=== PATIENT | male | born 1950 | race Caucasian/White ===

== ENCOUNTER 2018-09-17 11:50 | Inpatient (IN) ==
[2018-09-17] MEDS ORDERED: LIDOCAINE 2% TOP JELLY 20 ML VIAL INTRAURETH ONE (15:03)
[2018-09-17] MEDS ORDERED: ALBUTEROL 2.5 MG/3 ML NEB RESP TX PRN (15:16)
[2018-09-17] MEDS ORDERED: ACETAMINOPHEN 325 MG TABLET PO PRN (15:16)
[2018-09-17] MEDS ORDERED: MORPHINE 4 MG/1 ML VIAL IV PRN (15:16)
[2018-09-17 16:03] LABS: Apearance,Urine CLOUDY (Clear); Bilirubin,Urine Negative (Negative); Blood, Urine Large mg/dL (Negative); Glucose,Urine (UA) Negative (Negative); Hyaline Casts,Urine 16 /LPF (0-3); Ketones,Urine Negative (Negative); Nitrite,Urine Negative (Negative); Protein,Urine 30 MG/DL; RBC,Urine 206 /HPF (0-4); Urine Urobilinogen < 2.0 EU/DL (0.2-1.0); WBC,Urine 1115 /HPF (0-6)
[2018-09-17 16:04] LABS: Urine Color Yellow (Yellow)
[2018-09-17] MEDS ORDERED: MORPHINE 4 MG/1 ML VIAL IV ONE (16:04)
[2018-09-17] MEDS: SODIUM CHLORIDE 0.9% 1,000 ML IV SCH (16:05)
[2018-09-17] MEDS ORDERED: DIGOXIN 0.5 MG/2 ML AMP IV PRN (16:45)
[2018-09-17] MEDS ORDERED: HALOPERIDOL 5 MG/ML AMP IV PRN (16:45)
[2018-09-17] MEDS: BELLADONNA/OPIUM 30 MG SUPP RECTAL PRN (16:51)
[2018-09-17] MEDS: cefTRIAXone 1,000 MG in SYRINGE 1 EACH IV SCH (17:17)
[2018-09-17] MEDS ORDERED: SODIUM CHLORIDE 0.9% 500 ML IV ONE (21:10)
[2018-09-17] MEDS: NOREPINEPHRINE 8 MG in SODIUM CHLORIDE 0.9% 242 ML IV PRN (22:48)
[2018-09-18 06:09] LABS: Basophils % 0.3 % (0.0-0.8); Eosinophils # 0.2 10*3/uL (0.0-0.87); Eosinophils % 2.3 % (0.00-10.9); Immature Granulocytes % 0.4 %; Immature Granulocytes Absolute 0.03 #; Lymphocytes # 1.1 10*3/uL (1.4-4.0); Lymphocytes % 15.2 % (21.2-54.2); Mean Corpuscular HGB Conc 33.3 GM/DL (32-36); Mean Corpuscular Hemoglobin 32 PG (27-34); Mean Corpuscular Volume 96.1 FL (87-102); Mean Platelet Volume 8.5 FL (9.6-12.0); Monocytes # 1.1 10*3/uL (0.11-0.8); Monocytes % 14.6 % (1.7-12.7); Neutrophils # 4.9 10*3/uL (1.4-7.4); Neutrophils % 67.2 % (38.7-73.9); Platelet Count 128 T/CUMM (130-400); Red Blood Count 2.81 MC/CUMM (3.8-5.5); White Blood Count 7.3 T/CUMM (4-12)
[2018-09-18 06:37] LABS: Albumin 1.9 G/DL (3.4-5.0); Bilirubin,Total 2.1 MG/DL (0.2-1.0); Calcium 8.2 MG/DL (8.5-10.1); Osmolality,Calculated 288.4 MOS/KG (273-304); Potassium 4.9 MMOL/L (3.5-5.1); Thyroid Stimulating Hormone 5.12 uIU/ml (0.358-3.74); Total Protein 6.9 G/DL (6.4-8.3)
[2018-09-18] MEDS: SODIUM CHLORIDE 0.9% 1,000 ML IV SCH ×3 (07:45→23:58)
[2018-09-18] MEDS: PANTOPRAZOLE 40 MG TABLET PO SCH (09:20)
[2018-09-18] MEDS: LACTULOSE 20 GM/30 ML UDCUP PO SCH ×2 (15:15→20:55)
[2018-09-18] MEDS: NOREPINEPHRINE 8 MG in SODIUM CHLORIDE 0.9% 242 ML IV PRN (18:15)
[2018-09-18] MEDS: cefTRIAXone 1,000 MG in SYRINGE 1 EACH IV SCH (18:15)
[2018-09-18] MEDS: ONDANSETRON 4 MG/2 ML VIAL IV PRN (18:20)
[2018-09-19] MEDS: SODIUM CHLORIDE 0.9% 1,000 ML IV SCH ×2 (04:15→14:00)
[2018-09-19 04:45] LABS: Basophils % 0.2 % (0.0-0.8); Eosinophils # 0.1 10*3/uL (0.0-0.87); Eosinophils % 3.1 % (0.00-10.9); Hematocrit 27.6 VOL% (42.0-52.0); Hemoglobin 8.9 GM/DL (14.0-18.0); Immature Granulocytes % 0.4 %; Immature Granulocytes Absolute 0.02 #; Lymphocytes # 0.9 10*3/uL (1.4-4.0); Lymphocytes % 19.3 % (21.2-54.2); Mean Corpuscular HGB Conc 32.2 GM/DL (32-36); Mean Corpuscular Hemoglobin 31 PG (27-34); Mean Corpuscular Volume 96.8 FL (87-102); Mean Platelet Volume 8.3 FL (9.6-12.0); Monocytes # 0.6 10*3/uL (0.11-0.8); Neutrophils # 2.9 10*3/uL (1.4-7.4); Platelet Count 105 T/CUMM (130-400); Red Blood Count 2.85 MC/CUMM (3.8-5.5); Red Cell Distribution Width 17.3 % (9.3-17.3); White Blood Count 4.6 T/CUMM (4-12)
[2018-09-19 05:02] LABS: Calcium 7.6 MG/DL (8.5-10.1); Osmolality,Calculated 294.8 MOS/KG (273-304); Potassium 4.6 MMOL/L (3.5-5.1)
[2018-09-19 05:15] LABS: Target Cells Few
[2018-09-19 05:16] LABS: Hypochromasia 1+; Macrocytosis 1+; Platelet Estimate Decreased
[2018-09-19] MEDS: PANTOPRAZOLE 40 MG TABLET PO SCH (10:00)
[2018-09-19] MEDS: LACTULOSE 20 GM/30 ML UDCUP PO SCH ×3 (10:00→21:30)
[2018-09-19] MEDS: ONDANSETRON 4 MG/2 ML VIAL IV PRN (11:00)
[2018-09-19] MEDS: cefTRIAXone 1,000 MG in SYRINGE 1 EACH IV SCH (17:30)
[2018-09-20] MEDS: SODIUM CHLORIDE 0.9% 1,000 ML IV SCH ×3 (02:51→17:11)
[2018-09-20 04:28] LABS: Basophils % 0.3 % (0.0-0.8); Eosinophils # 0.2 10*3/uL (0.0-0.87); Eosinophils % 6.6 % (0.00-10.9); Hematocrit 24.9 VOL% (42.0-52.0); Hemoglobin 8.1 GM/DL (14.0-18.0); Immature Granulocytes % 0.3 %; Immature Granulocytes Absolute 0.01 #; Lymphocytes # 0.6 10*3/uL (1.4-4.0); Lymphocytes % 17.2 % (21.2-54.2); Mean Corpuscular HGB Conc 32.5 GM/DL (32-36); Mean Corpuscular Hemoglobin 32 PG (27-34); Mean Corpuscular Volume 99.2 FL (87-102); Mean Platelet Volume 8.8 FL (9.6-12.0); Monocytes # 0.4 10*3/uL (0.11-0.8); Monocytes % 12.5 % (1.7-12.7); Neutrophils % 63.1 % (38.7-73.9); Red Blood Count 2.51 MC/CUMM (3.8-5.5); Red Cell Distribution Width 17.4 % (9.3-17.3)
[2018-09-20 04:40] LABS: Platelet Count 77 T/CUMM (130-400); White Blood Count 3.2 T/CUMM (4-12)
[2018-09-20 04:51] LABS: Hypochromasia 1+; Macrocytosis Slight; Ovalocytes Slight; Platelet Estimate Decreased
[2018-09-20 04:56] LABS: Calcium 7.6 MG/DL (8.5-10.1); Osmolality,Calculated 300.4 MOS/KG (273-304); Potassium 4.5 MMOL/L (3.5-5.1)
[2018-09-20] MEDS ORDERED: SODIUM CHLORIDE 0.9% 250 ML IV ONE (08:45)
[2018-09-20] MEDS: LACTULOSE 20 GM/30 ML UDCUP PO SCH ×3 (09:18→20:21)
[2018-09-20] MEDS: FAMOTIDINE 20 MG TABLET PO SCH (09:18)
[2018-09-20] MEDS: ONDANSETRON 4 MG/2 ML VIAL IV PRN (12:05)
[2018-09-20] MEDS ORDERED: ALUMINUM/MAGNES/SIMETH MAX STR 30 ML UDCUP PO PRN (15:21)
[2018-09-20] MEDS ORDERED: MAGNESIUM HYDROXIDE SUSP 30 ML UDCUP PO PRN (15:21)
[2018-09-20] MEDS: cefTRIAXone 1,000 MG in SYRINGE 1 EACH IV SCH (17:08)
[2018-09-21 06:23] LABS: Basophils % 0.2 % (0.0-0.8); Eosinophils # 0.3 10*3/uL (0.0-0.87); Eosinophils % 7.6 % (0.00-10.9); Hematocrit 27.6 VOL% (42.0-52.0); Hemoglobin 8.9 GM/DL (14.0-18.0); Immature Granulocytes % 0.5 %; Immature Granulocytes Absolute 0.02 #; Lymphocytes # 0.6 10*3/uL (1.4-4.0); Mean Corpuscular HGB Conc 32.2 GM/DL (32-36); Mean Corpuscular Hemoglobin 32 PG (27-34); Monocytes # 0.4 10*3/uL (0.11-0.8); Monocytes % 9.8 % (1.7-12.7); Neutrophils # 2.8 10*3/uL (1.4-7.4); Neutrophils % 67.9 % (38.7-73.9); Platelet Count 77 T/CUMM (130-400); Red Blood Count 2.76 MC/CUMM (3.8-5.5); Red Cell Distribution Width 17.8 % (9.3-17.3); White Blood Count 4.1 T/CUMM (4-12)
[2018-09-21 06:26] LABS: Calcium 7.9 MG/DL (8.5-10.1); Osmolality,Calculated 292.8 MOS/KG (273-304); Potassium 4.5 MMOL/L (3.5-5.1)
[2018-09-21 09:22] LABS: Platelet Estimate Decreased
[2018-09-21] MEDS: LACTULOSE 20 GM/30 ML UDCUP PO SCH ×3 (10:52→21:15)
[2018-09-21] MEDS: FAMOTIDINE 20 MG TABLET PO SCH (10:52)
[2018-09-21] MEDS: SODIUM CHLORIDE 0.9% 1,000 ML IV SCH (12:25)
[2018-09-21] MEDS: cefTRIAXone 1,000 MG in SYRINGE 1 EACH IV SCH (16:24)
[2018-09-22 07:15] LABS: Basophils % 0.5 % (0.0-0.8); Eosinophils # 0.3 10*3/uL (0.0-0.87); Eosinophils % 7.6 % (0.00-10.9); Hematocrit 29.5 VOL% (42.0-52.0); Hemoglobin 9.5 GM/DL (14.0-18.0); Immature Granulocytes % 0.5 %; Immature Granulocytes Absolute 0.02 #; Lymphocytes # 0.8 10*3/uL (1.4-4.0); Lymphocytes % 18.8 % (21.2-54.2); Mean Corpuscular HGB Conc 32.2 GM/DL (32-36); Mean Corpuscular Hemoglobin 32 PG (27-34); Mean Corpuscular Volume 100.3 FL (87-102); Mean Platelet Volume 9.1 FL (9.6-12.0); Monocytes # 0.5 10*3/uL (0.11-0.8); Neutrophils # 2.7 10*3/uL (1.4-7.4); Neutrophils % 61.6 % (38.7-73.9); Red Blood Count 2.94 MC/CUMM (3.8-5.5); Red Cell Distribution Width 17.7 % (9.3-17.3); White Blood Count 4.4 T/CUMM (4-12)
[2018-09-22 07:17] LABS: Platelet Count 92 T/CUMM (130-400)
[2018-09-22 07:34] LABS: Potassium 4.3 MMOL/L (3.5-5.1)
[2018-09-22] MEDS: FAMOTIDINE 20 MG TABLET PO SCH (08:32)
[2018-09-22] MEDS: LACTULOSE 20 GM/30 ML UDCUP PO SCH ×3 (08:32→20:51)
[2018-09-22] MEDS: SODIUM CHLORIDE 0.9% 1,000 ML IV SCH (08:33)
[2018-09-22] MEDS: cefTRIAXone 1,000 MG in SYRINGE 1 EACH IV SCH (17:43)
[2018-09-23 06:33] LABS: Basophils % 0.4 % (0.0-0.8); Eosinophils # 0.4 10*3/uL (0.0-0.87); Eosinophils % 7.7 % (0.00-10.9); Hematocrit 29.4 VOL% (42.0-52.0); Hemoglobin 9.3 GM/DL (14.0-18.0); Immature Granulocytes % 0.2 %; Immature Granulocytes Absolute 0.01 #; Lymphocytes % 20.6 % (21.2-54.2); Mean Corpuscular HGB Conc 31.6 GM/DL (32-36); Mean Corpuscular Hemoglobin 32 PG (27-34); Mean Corpuscular Volume 101.4 FL (87-102); Mean Platelet Volume 8.7 FL (9.6-12.0); Monocytes # 0.5 10*3/uL (0.11-0.8); Monocytes % 11.6 % (1.7-12.7); Neutrophils # 2.8 10*3/uL (1.4-7.4); Neutrophils % 59.5 % (38.7-73.9); Platelet Count 84 T/CUMM (130-400); White Blood Count 4.7 T/CUMM (4-12)
[2018-09-23 06:53] LABS: Calcium 8.1 MG/DL (8.5-10.1); Osmolality,Calculated 286.3 MOS/KG (273-304); Potassium 4.4 MMOL/L (3.5-5.1)
[2018-09-23 07:08] LABS: Albumin 1.9 G/DL (3.4-5.0); Bilirubin,Direct 0.81 MG/DL (0.0-0.20); Bilirubin,Indirect 0.8 MG/DL (0.0-1.0); Bilirubin,Total 1.6 MG/DL (0.2-1.0)
[2018-09-23 07:22] LABS: Eosinophils 14 % (0-10); Hypochromasia 1+; Lymphocytes 10 % (20-55); Nucleated Red Blood Cells 1 (0-5); Ovalocytes Slight; Platelet Estimate Decreased; Segmented Neutrophils 67 % (50-85); Total Cells Counted 100
[2018-09-23] MEDS: LACTULOSE 20 GM/30 ML UDCUP PO SCH ×3 (09:00→21:39)
[2018-09-23] MEDS: FAMOTIDINE 20 MG TABLET PO SCH (09:00)
[2018-09-23] MEDS: cefTRIAXone 1,000 MG in SYRINGE 1 EACH IV SCH (18:23)
[2018-09-23] MEDS: BELLADONNA/OPIUM 30 MG SUPP RECTAL PRN (18:34)
[2018-09-24 05:25] LABS: Basophils % 0.4 % (0.0-0.8); Eosinophils # 0.4 10*3/uL (0.0-0.87); Eosinophils % 7.9 % (0.00-10.9); Hematocrit 28.6 VOL% (42.0-52.0); Hemoglobin 9.1 GM/DL (14.0-18.0); Immature Granulocytes % 0.6 %; Immature Granulocytes Absolute 0.03 #; Lymphocytes # 0.8 10*3/uL (1.4-4.0); Lymphocytes % 16.9 % (21.2-54.2); Mean Corpuscular HGB Conc 31.8 GM/DL (32-36); Mean Corpuscular Hemoglobin 32 PG (27-34); Mean Corpuscular Volume 101.4 FL (87-102); Mean Platelet Volume 8.8 FL (9.6-12.0); Monocytes # 0.7 10*3/uL (0.11-0.8); Monocytes % 13.1 % (1.7-12.7); Neutrophils % 61.1 % (38.7-73.9); Red Blood Count 2.82 MC/CUMM (3.8-5.5); Red Cell Distribution Width 17.7 % (9.3-17.3)
[2018-09-24 05:31] LABS: Platelet Count 92 T/CUMM (130-400)
[2018-09-24 05:42] LABS: Calcium 7.9 MG/DL (8.5-10.1); Osmolality,Calculated 284.4 MOS/KG (273-304); Potassium 4.5 MMOL/L (3.5-5.1)
[2018-09-24 06:20] LABS: Hypochromasia Slight; Platelet Estimate Decreased
[2018-09-24] MEDS ORDERED: TISSUE ADHESIVE 1 EACH APPLICATOR TOP ONE (08:21)
[2018-09-24] MEDS ORDERED: ALBUMIN 25% 12.5 GM/50 ML VIAL IV ONE (08:44)
[2018-09-24] MEDS ORDERED: ALBUMIN 25% 12.5 GM in PREMIX 1 EACH IV ONE (08:50)
[2018-09-24 10:04] LABS: Neutrophils,Peritoneal Fluid 24 %
[2018-09-24 10:05] LABS: RBC,Peritoneal Fluid 750 T/CUMM
[2018-09-24] MEDS: LACTULOSE 20 GM/30 ML UDCUP PO SCH ×3 (10:36→21:25)
[2018-09-24] MEDS: FAMOTIDINE 20 MG TABLET PO SCH (10:36)
[2018-09-24] MEDS: cefTRIAXone 1,000 MG in SYRINGE 1 EACH IV SCH (17:08)
[2018-09-25] MEDS: LACTULOSE 20 GM/30 ML UDCUP PO SCH ×2 (10:01→14:30)
[2018-09-25] MEDS: cefTRIAXone 1,000 MG in SYRINGE 1 EACH IV SCH (10:01)
[2018-09-25] MEDS: FAMOTIDINE 20 MG TABLET PO SCH (10:01)
[2018-09-25] MEDS: TAMSULOSIN 0.4 MG CAPSULE PO SCH (10:01)
[2018-09-26] MEDS: LACTULOSE 20 GM/30 ML UDCUP PO SCH ×4 (00:02→21:57)
[2018-09-26] MEDS: FAMOTIDINE 20 MG TABLET PO SCH (08:27)
[2018-09-26] MEDS: TAMSULOSIN 0.4 MG CAPSULE PO SCH (08:27)
[2018-09-26] MEDS: cefTRIAXone 1,000 MG in SYRINGE 1 EACH IV SCH ×2 (08:28→09:45)
[2018-09-26] MEDS: ONDANSETRON 4 MG/2 ML VIAL IV PRN (09:45)
[2018-09-26] MEDS ORDERED: FUROSEMIDE 40 MG/4 ML VIAL IV ONE (10:00)
[2018-09-26] MEDS: SPIRONOLACTONE 25 MG TABLET PO SCH (16:06)
[2018-09-26] MEDS: FUROSEMIDE 40 MG TABLET PO SCH (16:06)
[2018-09-27] MEDS: ZINC OXIDE PASTE 113 GM TUBE TOP SCH ×2 (07:37→09:04)
[2018-09-27] MEDS: FAMOTIDINE 20 MG TABLET PO SCH (09:03)
[2018-09-27] MEDS: FUROSEMIDE 40 MG TABLET PO SCH (09:03)
[2018-09-27] MEDS: LACTULOSE 20 GM/30 ML UDCUP PO SCH (09:03)
[2018-09-27] MEDS: TAMSULOSIN 0.4 MG CAPSULE PO SCH (09:04)
[2018-09-27] MEDS: SPIRONOLACTONE 25 MG TABLET PO SCH (09:04)
[2018-09-27] MEDS: cefTRIAXone 1,000 MG in SYRINGE 1 EACH IV SCH (09:04)
[2018-09-27 13:33] VITALS: BP 100/52
== END 2018-09-27 15:45 | disposition swing bed (61) | DRG 720 ==
LOC: N.ICU 13:16 → SUATTDRO 13:16 → N.5E 09-20 15:07
PROVIDERS: ADMIT Internal Medicine; ATTEND Internal Medicine Cardiovascular Disease

== ENCOUNTER 2018-09-28 14:01 | Inpatient (IN) ==
[2018-09-28] MEDS ORDERED: ZALEPLON 5 MG CAPSULE PO PRN (16:16)
[2018-09-28] MEDS ORDERED: BISACODYL 5 MG TABLET PO PRN (16:16)
[2018-09-28 17:13] LABS: Basophils % 0.4 % (0.0-0.8); Eosinophils # 0.2 10*3/uL (0.0-0.87); Eosinophils % 3.3 % (0.00-10.9); Hematocrit 24.8 VOL% (42.0-52.0); Hemoglobin 8.1 GM/DL (14.0-18.0); Immature Granulocytes % 0.6 %; Immature Granulocytes Absolute 0.03 #; Lymphocytes # 0.8 10*3/uL (1.4-4.0); Lymphocytes % 15.6 % (21.2-54.2); Mean Corpuscular HGB Conc 32.7 GM/DL (32-36); Mean Corpuscular Hemoglobin 32 PG (27-34); Mean Corpuscular Volume 98.8 FL (87-102); Mean Platelet Volume 9.9 FL (9.6-12.0); Monocytes # 0.6 10*3/uL (0.11-0.8); Monocytes % 12.8 % (1.7-12.7); Neutrophils # 3.3 10*3/uL (1.4-7.4); Neutrophils % 67.3 % (38.7-73.9); Platelet Count 78 T/CUMM (130-400); Red Blood Count 2.51 MC/CUMM (3.8-5.5); Red Cell Distribution Width 17.9 % (9.3-17.3); White Blood Count 4.9 T/CUMM (4-12)
[2018-09-28] MEDS: FUROSEMIDE 20 MG/2 ML VIAL IV SCH (17:15)
[2018-09-28] MEDS: cefTRIAXone 1,000 MG in SYRINGE 1 EACH IV SCH (17:16)
[2018-09-28] MEDS: SPIRONOLACTONE 25 MG TABLET PO SCH (17:19)
[2018-09-28 17:27] LABS: Albumin 1.6 G/DL (3.4-5.0); Bilirubin,Total 1.3 MG/DL (0.2-1.0); Calcium 7.7 MG/DL (8.5-10.1); Osmolality,Calculated 273.2 MOS/KG (273-304); Potassium 4.4 MMOL/L (3.5-5.1); Total Protein 6.2 G/DL (6.4-8.3)
[2018-09-28] MEDS: ENOXAPARIN 30 MG/0.3 ML SYRINGE SUBCUT SCH (21:19)
[2018-09-28] MEDS: LACTULOSE 20 GM/30 ML UDCUP PO SCH (21:20)
[2018-09-29 05:25] LABS: Calcium 7.6 MG/DL (8.5-10.1); Potassium 4.2 MMOL/L (3.5-5.1)
[2018-09-29] MEDS ORDERED: MAGNESIUM SULF RIDER 4 GM in PREMIX 1 EACH IV PRN (07:19)
[2018-09-29] MEDS: MAGNESIUM SULF RIDER 2 GM in PREMIX 1 EACH IV PRN (09:57)
[2018-09-29] MEDS: FUROSEMIDE 20 MG/2 ML VIAL IV SCH ×2 (09:57→17:22)
[2018-09-29] MEDS: SPIRONOLACTONE 25 MG TABLET PO SCH ×2 (09:57→17:22)
[2018-09-29] MEDS: LACTULOSE 20 GM/30 ML UDCUP PO SCH ×3 (09:57→20:40)
[2018-09-29] MEDS: TAMSULOSIN 0.4 MG CAPSULE PO SCH (09:58)
[2018-09-29] MEDS: cefTRIAXone 1,000 MG in SYRINGE 1 EACH IV SCH (17:22)
[2018-09-29] MEDS: ONDANSETRON 4 MG/2 ML VIAL IV PRN (17:22)
[2018-09-29] MEDS: ENOXAPARIN 30 MG/0.3 ML SYRINGE SUBCUT SCH (20:41)
[2018-09-30 05:03] LABS: Calcium 7.7 MG/DL (8.5-10.1); Osmolality,Calculated 269.4 MOS/KG (273-304)
[2018-09-30] MEDS: SPIRONOLACTONE 25 MG TABLET PO SCH (09:34)
[2018-09-30] MEDS: FUROSEMIDE 20 MG/2 ML VIAL IV SCH ×2 (09:34→15:22)
[2018-09-30] MEDS: LACTULOSE 20 GM/30 ML UDCUP PO SCH ×3 (09:34→21:49)
[2018-09-30] MEDS: TAMSULOSIN 0.4 MG CAPSULE PO SCH (09:35)
[2018-09-30 14:53] LABS: INR 1.5; PT Patient Result 15.9 SECS
[2018-09-30 15:48] LABS: HIV Antigen/Antibody Result Nonreactive (Nonreactive)
[2018-09-30 15:50] LABS: Hepatitis A Ab IgM Quant 0.22 Index; Hepatitis A Ab IgM Result Negative (Negative); Hepatitis B Core IgM Quant 0.07 Index; Hepatitis B Core IgM Result Negative (Negative); Hepatitis B Surface Ag Quant < 0.10 Index; Hepatitis B Surface Ag Result Negative (Negative); Hepatitis C Virus Ab Quant > 11.00 Index; Hepatitis C Virus Ab Result Positive (Negative)
[2018-09-30] MEDS: cefTRIAXone 1,000 MG in SYRINGE 1 EACH IV SCH (18:03)
[2018-09-30] MEDS: ENOXAPARIN 40 MG/0.4 ML SYRINGE SUBCUT SCH (21:49)
[2018-09-30] MEDS: SPIRONOLACTONE 50 MG TABLET PO SCH (21:49)
[2018-10-01 08:34] LABS: Basophils % 0.4 % (0.0-0.8); Eosinophils # 0.3 10*3/uL (0.0-0.87); Eosinophils % 5.5 % (0.00-10.9); Hematocrit 25.1 VOL% (42.0-52.0); Hemoglobin 8.2 GM/DL (14.0-18.0); Immature Granulocytes % 0.8 %; Immature Granulocytes Absolute 0.04 #; Lymphocytes # 0.9 10*3/uL (1.4-4.0); Lymphocytes % 17.4 % (21.2-54.2); Mean Corpuscular HGB Conc 32.7 GM/DL (32-36); Mean Corpuscular Hemoglobin 32 PG (27-34); Mean Corpuscular Volume 98.8 FL (87-102); Mean Platelet Volume 9.3 FL (9.6-12.0); Monocytes # 0.6 10*3/uL (0.11-0.8); Monocytes % 11.2 % (1.7-12.7); Neutrophils # 3.3 10*3/uL (1.4-7.4); Neutrophils % 64.7 % (38.7-73.9); Platelet Count 95 T/CUMM (130-400); Red Blood Count 2.54 MC/CUMM (3.8-5.5); Red Cell Distribution Width 17.5 % (9.3-17.3); White Blood Count 5.1 T/CUMM (4-12)
[2018-10-01 08:48] LABS: Calcium 7.7 MG/DL (8.5-10.1); Osmolality,Calculated 266.5 MOS/KG (273-304)
[2018-10-01 09:01] LABS: Anisocytosis 1+; Platelet Estimate Decreased
[2018-10-01] MEDS: SPIRONOLACTONE 50 MG TABLET PO SCH ×2 (10:22→20:47)
[2018-10-01] MEDS: LACTULOSE 20 GM/30 ML UDCUP PO SCH ×3 (10:23→20:47)
[2018-10-01] MEDS: FUROSEMIDE 20 MG/2 ML VIAL IV SCH ×2 (10:23→16:16)
[2018-10-01] MEDS: TAMSULOSIN 0.4 MG CAPSULE PO SCH (10:26)
[2018-10-01] MEDS: ONDANSETRON 4 MG/2 ML VIAL IV PRN (16:19)
[2018-10-01] MEDS: ENOXAPARIN 40 MG/0.4 ML SYRINGE SUBCUT SCH (20:47)
[2018-10-02 05:05] LABS: Basophils % 0.5 % (0.0-0.8); Eosinophils # 0.3 10*3/uL (0.0-0.87); Eosinophils % 6.6 % (0.00-10.9); Hematocrit 23.1 VOL% (42.0-52.0); Hemoglobin 7.7 GM/DL (14.0-18.0); Immature Granulocytes % 0.5 %; Immature Granulocytes Absolute 0.02 #; Lymphocytes # 0.9 10*3/uL (1.4-4.0); Lymphocytes % 21.1 % (21.2-54.2); Mean Corpuscular HGB Conc 33.3 GM/DL (32-36); Mean Corpuscular Hemoglobin 33 PG (27-34); Mean Corpuscular Volume 98.7 FL (87-102); Mean Platelet Volume 9.6 FL (9.6-12.0); Monocytes # 0.6 10*3/uL (0.11-0.8); Neutrophils # 2.5 10*3/uL (1.4-7.4); Neutrophils % 58.3 % (38.7-73.9); Red Blood Count 2.34 MC/CUMM (3.8-5.5); Red Cell Distribution Width 17.8 % (9.3-17.3); White Blood Count 4.2 T/CUMM (4-12)
[2018-10-02 05:11] LABS: Platelet Count 91 T/CUMM (130-400)
[2018-10-02 05:23] LABS: Hypochromasia 1+; Platelet Estimate Decreased
[2018-10-02 05:26] LABS: Calcium 7.5 MG/DL (8.5-10.1); Osmolality,Calculated 269.2 MOS/KG (273-304); Potassium 3.7 MMOL/L (3.5-5.1)
[2018-10-02] MEDS: SPIRONOLACTONE 50 MG TABLET PO SCH ×2 (08:25→20:22)
[2018-10-02] MEDS: TAMSULOSIN 0.4 MG CAPSULE PO SCH (08:25)
[2018-10-02] MEDS: LACTULOSE 20 GM/30 ML UDCUP PO SCH ×3 (08:25→20:22)
[2018-10-02] MEDS: FUROSEMIDE 20 MG/2 ML VIAL IV SCH ×2 (08:26→15:40)
[2018-10-02] MEDS ORDERED: SODIUM CHLORIDE 0.9% 1,000 ML IV PRN (15:56)
[2018-10-02] MEDS: ONDANSETRON 4 MG/2 ML VIAL IV PRN ×2 (18:04→22:35)
[2018-10-02] MEDS: ENOXAPARIN 40 MG/0.4 ML SYRINGE SUBCUT SCH (20:22)
[2018-10-03 05:44] LABS: Basophils % 0.4 % (0.0-0.8); Eosinophils # 0.3 10*3/uL (0.0-0.87); Eosinophils % 6.4 % (0.00-10.9); Hematocrit 26.4 VOL% (42.0-52.0); Hemoglobin 8.6 GM/DL (14.0-18.0); Immature Granulocytes % 0.4 %; Immature Granulocytes Absolute 0.02 #; Lymphocytes % 20.1 % (21.2-54.2); Mean Corpuscular HGB Conc 32.6 GM/DL (32-36); Mean Corpuscular Hemoglobin 33 PG (27-34); Mean Platelet Volume 9.5 FL (9.6-12.0); Monocytes # 0.6 10*3/uL (0.11-0.8); Monocytes % 11.7 % (1.7-12.7); Neutrophils # 3.1 10*3/uL (1.4-7.4); Platelet Count 99 T/CUMM (130-400); Red Blood Count 2.64 MC/CUMM (3.8-5.5); Red Cell Distribution Width 17.8 % (9.3-17.3)
[2018-10-03 06:02] LABS: Calcium 7.8 MG/DL (8.5-10.1); Osmolality,Calculated 268.2 MOS/KG (273-304); Potassium 3.9 MMOL/L (3.5-5.1)
[2018-10-03 06:25] LABS: Hypochromasia 1+
[2018-10-03 06:26] LABS: Macrocytosis 1+; Platelet Estimate Decreased; Target Cells Slight
[2018-10-03] MEDS: FUROSEMIDE 20 MG/2 ML VIAL IV SCH ×2 (10:10→16:55)
[2018-10-03] MEDS: TAMSULOSIN 0.4 MG CAPSULE PO SCH (10:11)
[2018-10-03] MEDS: LACTULOSE 20 GM/30 ML UDCUP PO SCH ×3 (10:11→20:41)
[2018-10-03] MEDS: SPIRONOLACTONE 50 MG TABLET PO SCH ×2 (10:11→20:49)
[2018-10-03] MEDS: MAGNESIUM SULF RIDER 2 GM in PREMIX 1 EACH IV PRN (14:22)
[2018-10-03] MEDS ORDERED: ALBUMIN 25% 12.5 GM/50 ML VIAL IV ONE ×2 (15:46→16:09)
[2018-10-03] MEDS ORDERED: ALBUMIN 25% 12.5 GM in PREMIX 1 EACH IV ONE ×2 (15:52→16:17)
[2018-10-03 17:37] LABS: Neutrophils,Peritoneal Fluid 8 %; RBC,Peritoneal Fluid 151 T/CUMM
[2018-10-03] MEDS: ENOXAPARIN 40 MG/0.4 ML SYRINGE SUBCUT SCH (20:40)
[2018-10-04] MEDS: FUROSEMIDE 20 MG/2 ML VIAL IV SCH ×2 (10:49→15:44)
[2018-10-04] MEDS: SPIRONOLACTONE 50 MG TABLET PO SCH ×2 (10:49→20:41)
[2018-10-04] MEDS: LACTULOSE 20 GM/30 ML UDCUP PO SCH ×3 (10:50→20:41)
[2018-10-04] MEDS: TAMSULOSIN 0.4 MG CAPSULE PO SCH (10:50)
[2018-10-04] MEDS ORDERED: ALBUMIN 25% 25 GM in PREMIX 1 EACH IV ONE (11:00)
[2018-10-04] MEDS: ENOXAPARIN 40 MG/0.4 ML SYRINGE SUBCUT SCH (20:41)
[2018-10-05] MEDS: FUROSEMIDE 20 MG/2 ML VIAL IV SCH ×2 (08:57→16:33)
[2018-10-05] MEDS: TAMSULOSIN 0.4 MG CAPSULE PO SCH (09:31)
[2018-10-05] MEDS: SPIRONOLACTONE 50 MG TABLET PO SCH ×2 (09:32→21:21)
[2018-10-05] MEDS: LACTULOSE 20 GM/30 ML UDCUP PO SCH ×3 (09:32→21:21)
[2018-10-05] MEDS ORDERED: TUBERCULIN SKIN TEST 0.1 ML SYRINGE INTRADERM ONE (12:01)
[2018-10-05] MEDS: ENOXAPARIN 40 MG/0.4 ML SYRINGE SUBCUT SCH (21:21)
[2018-10-06] MEDS: SPIRONOLACTONE 50 MG TABLET PO SCH ×2 (08:53→20:31)
[2018-10-06] MEDS: TAMSULOSIN 0.4 MG CAPSULE PO SCH (08:53)
[2018-10-06] MEDS: LACTULOSE 20 GM/30 ML UDCUP PO SCH ×3 (08:53→20:31)
[2018-10-06] MEDS: FUROSEMIDE 20 MG/2 ML VIAL IV SCH ×2 (08:53→15:43)
[2018-10-06] MEDS: ENOXAPARIN 40 MG/0.4 ML SYRINGE SUBCUT SCH (20:31)
[2018-10-07] MEDS: LACTULOSE 20 GM/30 ML UDCUP PO SCH (09:08)
[2018-10-07] MEDS: FUROSEMIDE 20 MG/2 ML VIAL IV SCH (09:08)
[2018-10-07] MEDS: SPIRONOLACTONE 50 MG TABLET PO SCH (09:08)
[2018-10-07] MEDS: TAMSULOSIN 0.4 MG CAPSULE PO SCH (09:11)
[2018-10-07 11:47] VITALS: BP 95/57
== END 2018-10-07 11:52 ==
LOC: SUATTDRO 15:38 → N.2E 15:38
PROVIDERS: ADMIT Internal Medicine; ATTEND Internal Medicine

== ENCOUNTER 2018-10-18 17:36 | Observation (INO) ==
[2018-10-18 18:18] LABS: Basophils % 0.4 % (0.0-0.8); Eosinophils # 0.2 10*3/uL (0.0-0.87); Eosinophils % 3.1 % (0.00-10.9); Hematocrit 29.1 VOL% (42.0-52.0); Hemoglobin 9.5 GM/DL (14.0-18.0); Immature Granulocytes % 0.7 %; Immature Granulocytes Absolute 0.04 #; Lymphocytes # 0.8 10*3/uL (1.4-4.0); Lymphocytes % 14.9 % (21.2-54.2); Mean Corpuscular HGB Conc 32.6 GM/DL (32-36); Mean Corpuscular Hemoglobin 32 PG (27-34); Mean Corpuscular Volume 99.3 FL (87-102); Mean Platelet Volume 9.4 FL (9.6-12.0); Monocytes # 0.6 10*3/uL (0.11-0.8); Monocytes % 11.4 % (1.7-12.7); Neutrophils # 3.8 10*3/uL (1.4-7.4); Neutrophils % 69.5 % (38.7-73.9); Platelet Count 109 T/CUMM (130-400); Red Blood Count 2.93 MC/CUMM (3.8-5.5); Red Cell Distribution Width 17.8 % (9.3-17.3); White Blood Count 5.4 T/CUMM (4-12)
[2018-10-18 18:24] LABS: INR 1.1; PT Patient Result 12.2 SECS
[2018-10-18 18:31] LABS: Albumin 2.5 G/DL (3.4-5.0); Bilirubin,Total 1.6 MG/DL (0.2-1.0); Calcium 8.2 MG/DL (8.5-10.1); Potassium 4.2 MMOL/L (3.5-5.1); Total Protein 8.1 G/DL (6.4-8.3)
[2018-10-18] MEDS ORDERED: ONDANSETRON 4 MG/2 ML VIAL IV PRN (19:56)
[2018-10-18] MEDS ORDERED: MAGNESIUM HYDROXIDE SUSP 30 ML UDCUP PO PRN (20:02)
[2018-10-18] MEDS ORDERED: ACETAMINOPHEN 325 MG TABLET PO PRN (20:02)
[2018-10-18] MEDS ORDERED: ALUMINUM/MAGNES/SIMETH MAX STR 30 ML UDCUP PO PRN (20:02)
[2018-10-18] MEDS ORDERED: ONDANSETRON 4 MG TABLET PO PRN (20:02)
[2018-10-18] MEDS ORDERED: ALBUTEROL 2.5 MG/3 ML NEB RESP TX PRN (20:02)
[2018-10-18] MEDS: LACTULOSE 20 GM/30 ML UDCUP PO SCH (23:03)
[2018-10-18] MEDS: NITROFURANTOIN MACRO/MONO 100 MG CAPSULE PO SCH (23:03)
[2018-10-19 06:47] LABS: Basophils % 0.5 % (0.0-0.8); Eosinophils # 0.2 10*3/uL (0.0-0.87); Eosinophils % 4.6 % (0.00-10.9); Hemoglobin 8.1 GM/DL (14.0-18.0); Immature Granulocytes % 0.7 %; Immature Granulocytes Absolute 0.03 #; Lymphocytes # 0.7 10*3/uL (1.4-4.0); Lymphocytes % 16.9 % (21.2-54.2); Mean Corpuscular HGB Conc 33.8 GM/DL (32-36); Mean Corpuscular Hemoglobin 33 PG (27-34); Mean Platelet Volume 8.9 FL (9.6-12.0); Monocytes # 0.5 10*3/uL (0.11-0.8); Monocytes % 11.7 % (1.7-12.7); Neutrophils # 2.9 10*3/uL (1.4-7.4); Neutrophils % 65.6 % (38.7-73.9); Platelet Count 78 T/CUMM (130-400); Red Blood Count 2.45 MC/CUMM (3.8-5.5); Red Cell Distribution Width 17.8 % (9.3-17.3); White Blood Count 4.4 T/CUMM (4-12)
[2018-10-19 07:27] LABS: Bilirubin,Total 1.6 MG/DL (0.2-1.0); Calcium 8.1 MG/DL (8.5-10.1); Osmolality,Calculated 275.1 MOS/KG (273-304); Potassium 4.2 MMOL/L (3.5-5.1); Total Protein 6.5 G/DL (6.4-8.3)
[2018-10-19] MEDS ORDERED: SPIRONOLACTONE 25 MG TABLET PO SCH (08:00)
[2018-10-19] MEDS ORDERED: [UNRECOGNIZED DRUG - OTHER] PO SCH (09:00)
[2018-10-19] MEDS: LACTULOSE 20 GM/30 ML UDCUP PO SCH ×3 (09:05→20:41)
[2018-10-19] MEDS: TAMSULOSIN 0.4 MG CAPSULE PO SCH (09:06)
[2018-10-19] MEDS: FAMOTIDINE 20 MG TABLET PO SCH (09:07)
[2018-10-19] MEDS: FUROSEMIDE 20 MG TABLET PO SCH ×2 (09:07→16:10)
[2018-10-19] MEDS: NITROFURANTOIN MACRO/MONO 100 MG CAPSULE PO SCH ×2 (09:07→20:41)
[2018-10-19] MEDS: PANTOPRAZOLE 40 MG TABLET PO SCH (09:07)
[2018-10-19 11:24] LABS: Eosinophils 6 % (0-10); Lymphocytes 15 % (20-55); Segmented Neutrophils 73 % (50-85); Total Cells Counted 100
[2018-10-19 11:25] LABS: Anisocytosis 1+; Microcytosis 1+
[2018-10-19 11:29] LABS: Platelet Estimate Decreased; Polychromasia Slight
[2018-10-19] MEDS: SPIRONOLACTONE 50 MG TABLET PO SCH ×3 (13:01→20:40)
[2018-10-20 05:57] LABS: Basophils % 0.2 % (0.0-0.8); Eosinophils # 0.2 10*3/uL (0.0-0.87); Eosinophils % 3.8 % (0.00-10.9); Hematocrit 26.2 VOL% (42.0-52.0); Hemoglobin 8.6 GM/DL (14.0-18.0); Immature Granulocytes % 0.7 %; Immature Granulocytes Absolute 0.03 #; Lymphocytes # 0.9 10*3/uL (1.4-4.0); Lymphocytes % 21.6 % (21.2-54.2); Mean Corpuscular HGB Conc 32.8 GM/DL (32-36); Mean Corpuscular Hemoglobin 33 PG (27-34); Mean Corpuscular Volume 99.2 FL (87-102); Mean Platelet Volume 9.4 FL (9.6-12.0); Monocytes # 0.5 10*3/uL (0.11-0.8); Monocytes % 12.4 % (1.7-12.7); Neutrophils # 2.6 10*3/uL (1.4-7.4); Neutrophils % 61.3 % (38.7-73.9); Red Blood Count 2.64 MC/CUMM (3.8-5.5); Red Cell Distribution Width 17.8 % (9.3-17.3); White Blood Count 4.2 T/CUMM (4-12)
[2018-10-20 06:02] LABS: Platelet Count 91 T/CUMM (130-400)
[2018-10-20 06:23] LABS: Calcium 8.1 MG/DL (8.5-10.1); Potassium 4.2 MMOL/L (3.5-5.1)
[2018-10-20 08:34] LABS: Hypochromasia Slight
[2018-10-20 08:35] LABS: Microcytosis Slight; Platelet Estimate Adequate; Polychromasia Slight
[2018-10-20] MEDS: LACTULOSE 20 GM/30 ML UDCUP PO SCH ×4 (09:39→20:57)
[2018-10-20] MEDS: FUROSEMIDE 20 MG TABLET PO SCH ×2 (09:40→16:03)
[2018-10-20] MEDS: SPIRONOLACTONE 50 MG TABLET PO SCH ×2 (09:40→20:55)
[2018-10-20] MEDS: FAMOTIDINE 20 MG TABLET PO SCH (09:40)
[2018-10-20] MEDS: PANTOPRAZOLE 40 MG TABLET PO SCH (09:40)
[2018-10-20] MEDS: NITROFURANTOIN MACRO/MONO 100 MG CAPSULE PO SCH ×2 (09:40→20:55)
[2018-10-20] MEDS: TAMSULOSIN 0.4 MG CAPSULE PO SCH (09:40)
[2018-10-21 06:14] LABS: Basophils % 0.3 % (0.0-0.8); Eosinophils # 0.1 10*3/uL (0.0-0.87); Eosinophils % 2.9 % (0.00-10.9); Hematocrit 23.9 VOL% (42.0-52.0); Immature Granulocytes % 0.5 %; Immature Granulocytes Absolute 0.02 #; Lymphocytes # 0.7 10*3/uL (1.4-4.0); Lymphocytes % 17.3 % (21.2-54.2); Mean Corpuscular HGB Conc 33.5 GM/DL (32-36); Mean Corpuscular Hemoglobin 33 PG (27-34); Mean Platelet Volume 9.1 FL (9.6-12.0); Monocytes # 0.5 10*3/uL (0.11-0.8); Monocytes % 12.6 % (1.7-12.7); Neutrophils # 2.5 10*3/uL (1.4-7.4); Neutrophils % 66.4 % (38.7-73.9); Platelet Count 82 T/CUMM (130-400); Red Blood Count 2.44 MC/CUMM (3.8-5.5); Red Cell Distribution Width 17.7 % (9.3-17.3); White Blood Count 3.8 T/CUMM (4-12)
[2018-10-21 06:26] LABS: INR 1.2; PT Patient Result 12.7 SECS
[2018-10-21 06:39] LABS: % Iron Saturation 39.7 % (18-50); Ferritin 311.6 ng/ml (26-388)
[2018-10-21 06:40] LABS: Hypochromasia 1+
[2018-10-21 06:41] LABS: Anisocytosis 1+; Microcytosis 1+; Platelet Estimate Decreased; Target Cells Slight
[2018-10-21] MEDS ORDERED: ALBUMIN 25% 12.5 GM/50 ML VIAL IV ONE (08:21)
[2018-10-21] MEDS ORDERED: ALBUMIN 25% 12.5 GM in PREMIX 1 EACH IV ONE (08:56)
[2018-10-21] MEDS: FAMOTIDINE 20 MG TABLET PO SCH (09:24)
[2018-10-21] MEDS: SPIRONOLACTONE 50 MG TABLET PO SCH (09:24)
[2018-10-21] MEDS: NITROFURANTOIN MACRO/MONO 100 MG CAPSULE PO SCH (09:24)
[2018-10-21] MEDS: TAMSULOSIN 0.4 MG CAPSULE PO SCH (09:24)
[2018-10-21] MEDS: FUROSEMIDE 20 MG TABLET PO SCH (09:25)
[2018-10-21] MEDS: LACTULOSE 20 GM/30 ML UDCUP PO SCH (09:28)
[2018-10-21 11:23] VITALS: BP 99/51
== END 2018-10-21 14:26 ==
LOC: EDBD → EDUNIT# → N.EDINP 17:36 → N.ED 17:36 → SUATTDRO 19:15 → N.5E 21:46
PROVIDERS: ADMIT Internal Medicine; ATTEND Internal Medicine

== ENCOUNTER 2018-11-06 13:47 | Inpatient (IN) ==
[2018-11-06] MEDS ORDERED: TISSUE ADHESIVE 1 EACH APPLICATOR TOP ONE (14:11)
[2018-11-06] MEDS ORDERED: ONDANSETRON 4 MG/2 ML VIAL IV PRN (14:33)
[2018-11-06] MEDS ORDERED: ALBUMIN 25% 12.5 GM/50 ML VIAL IV ONE ×2 (14:47→15:09)
[2018-11-06] MEDS ORDERED: ALBUMIN 25% 12.5 GM in PREMIX 1 EACH IV ONE ×2 (14:50→15:15)
[2018-11-06] MEDS ORDERED: ALBUTEROL 2.5 MG/3 ML NEB RESP TX PRN (15:09)
[2018-11-06 16:52] LABS: Glucose,Peritoneal Fluid 120 MG/DL; LDH,Peritoneal Fluid 36 U/L; Total Protein,Peritoneal Fluid < 1.0 G/DL
[2018-11-06] MEDS: LACTULOSE 20 GM/30 ML UDCUP PO SCH (20:33)
[2018-11-06 20:46] LABS: Neutrophils,Peritoneal Fluid 10 %; RBC,Peritoneal Fluid 16388 T/CUMM
[2018-11-07 05:38] LABS: Basophils % 0.4 % (0.0-0.8); Eosinophils # 0.2 10*3/uL (0.0-0.87); Eosinophils % 3.3 % (0.00-10.9); Hemoglobin 8.3 GM/DL (14.0-18.0); Immature Granulocytes % 1.1 %; Immature Granulocytes Absolute 0.06 #; Lymphocytes # 0.8 10*3/uL (1.4-4.0); Lymphocytes % 14.3 % (21.2-54.2); Mean Corpuscular HGB Conc 33.2 GM/DL (32-36); Mean Corpuscular Hemoglobin 33 PG (27-34); Mean Corpuscular Volume 100.4 FL (87-102); Mean Platelet Volume 8.8 FL (9.6-12.0); Monocytes # 0.7 10*3/uL (0.11-0.8); Monocytes % 12.5 % (1.7-12.7); Neutrophils # 3.8 10*3/uL (1.4-7.4); Neutrophils % 68.4 % (38.7-73.9); Platelet Count 88 T/CUMM (130-400); Red Blood Count 2.49 MC/CUMM (3.8-5.5); Red Cell Distribution Width 16.6 % (9.3-17.3); White Blood Count 5.5 T/CUMM (4-12)
[2018-11-07 05:46] LABS: INR 1.2; PT Patient Result 12.5 SECS
[2018-11-07 05:54] LABS: Albumin 2.2 G/DL (3.4-5.0); Bilirubin,Total 1.7 MG/DL (0.2-1.0); Calcium 7.9 MG/DL (8.5-10.1); Osmolality,Calculated 272.8 MOS/KG (273-304); Potassium 4.3 MMOL/L (3.5-5.1); Total Protein 6.5 G/DL (6.4-8.3)
[2018-11-07 06:20] LABS: Eosinophils 2 % (0-10); Hypochromasia 1+; Lymphocytes 11 % (20-55); Macrocytosis 1+; Metamyelocytes 1 %; Platelet Estimate Decreased; Segmented Neutrophils 74 % (50-85); Total Cells Counted 100
[2018-11-07 06:21] LABS: Atypical Lymphocytes Few
[2018-11-07] MEDS: LACTULOSE 20 GM/30 ML UDCUP PO SCH ×3 (08:54→20:03)
[2018-11-07] MEDS ORDERED: ALBUMIN 25% 50 GM in PREMIX 1 EACH IV ONE (10:15)
[2018-11-08] MEDS ORDERED: FUROSEMIDE 40 MG TABLET PO SCH (08:00)
[2018-11-08 08:22] LABS: Basophils % 0.3 % (0.0-0.8); Eosinophils # 0.2 10*3/uL (0.0-0.87); Eosinophils % 2.5 % (0.00-10.9); Hematocrit 25.2 VOL% (42.0-52.0); Hemoglobin 8.6 GM/DL (14.0-18.0); Immature Granulocytes % 1.1 %; Immature Granulocytes Absolute 0.07 #; Lymphocytes % 14.7 % (21.2-54.2); Mean Corpuscular HGB Conc 34.1 GM/DL (32-36); Mean Corpuscular Hemoglobin 34 PG (27-34); Mean Corpuscular Volume 98.8 FL (87-102); Monocytes # 0.8 10*3/uL (0.11-0.8); Monocytes % 12.2 % (1.7-12.7); Neutrophils # 4.5 10*3/uL (1.4-7.4); Neutrophils % 69.2 % (38.7-73.9); Red Blood Count 2.55 MC/CUMM (3.8-5.5); Red Cell Distribution Width 16.6 % (9.3-17.3); White Blood Count 6.5 T/CUMM (4-12)
[2018-11-08 08:23] LABS: Platelet Count 99 T/CUMM (130-400)
[2018-11-08 08:40] LABS: Albumin 2.5 G/DL (3.4-5.0); Bilirubin,Total 1.6 MG/DL (0.2-1.0); Calcium 7.8 MG/DL (8.5-10.1); Hypochromasia 1+; Osmolality,Calculated 276.7 MOS/KG (273-304); Platelet Estimate Decreased; Potassium 5.1 MMOL/L (3.5-5.1); Total Protein 6.7 G/DL (6.4-8.3)
[2018-11-08 08:41] LABS: Macrocytosis Slight
[2018-11-08] MEDS: LACTULOSE 20 GM/30 ML UDCUP PO SCH (08:58)
[2018-11-08] MEDS ORDERED: FAMOTIDINE 20 MG TABLET PO SCH (09:00)
[2018-11-08] MEDS ORDERED: SPIRONOLACTONE 50 MG TABLET PO SCH (09:00)
[2018-11-08] MEDS ORDERED: TAMSULOSIN 0.4 MG CAPSULE PO SCH (09:00)
[2018-11-08 11:52] VITALS: BP 90/56
== END 2018-11-08 13:53 | disposition home or self-care (01) ==
LOC: N.5E 13:47 → N.RAD 13:47 → SUATTDRO 14:45
PROVIDERS: ADMIT Radiology Diagnostic Radiology; ATTEND Internal Medicine Gastroenterology